=== PATIENT | female | born 1990 | race Hispanic/Latino ===

== ENCOUNTER 2017-12-15 21:14 | Emergency (ER) | payer OTHER, SELFPAY ==
[2017-12-15] MEDS ORDERED: Metoclopramide HCl 10 MG TAB ONE (21:52)
[2017-12-15 22:03] LABS: Bilirubin Negative (Negative); Blood, Urine Negative (Negative); Clarity Clear (Clear); Glucose, Urine (Dipstick) Negative (Negative); Leukocyte Trace (Negative); Nitrite Negative (Negative); Protein, Urine (Dipstick) Trace mg/dL (Neg-Trace); Urobilinogen 0.2 mg/dL (0.2-1.0)
[2017-12-15 22:06] LABS: Specific Gravity, Urine 1.028 (1.002-1.036)
[2017-12-15 22:07] LABS: RBC/HPF 0-3 HPF (0-3)
[2017-12-15 22:08] LABS: Bacteria/HPF Rare-Few HPF (None Seen); Squamous Epithelial 0-3 HPF (0-3)
[2017-12-15] MEDS ORDERED: Amoxicillin/Potassium Clav 875 MG TAB ONE (22:34)
== END 2017-12-15 22:38 | disposition home or self-care (01) ==
LOC: NAV ERS 21:14
DX: O23.42 Unspecified infection of urinary tract in pregnancy, second trimester (principal); O99.342 Other mental disorders complicating pregnancy, second trimester; F41.9 Anxiety disorder, unspecified; F32.9 Major depressive disorder, single episode, unspecified; Z3A.24 24 weeks gestation of pregnancy
CPT/HCPCS: 51701; 81003; 81015; 87086

== ENCOUNTER 2022-05-09 16:11 | Emergency (ER) | payer OTHER ==
[2022-05-09] MEDS ORDERED: Acetaminophen 500 MG TAB ONE (17:11)
== END 2022-05-09 17:38 | disposition home or self-care (01) ==
LOC: NAV ERS 16:11
DX: J10.1 Influenza due to other identified influenza virus with other respiratory manifestations (principal); J45.909 Unspecified asthma, uncomplicated
CPT/HCPCS: 87804; 99283